=== PATIENT | male | born 1970 | race Caucasian/White ===

== ENCOUNTER → 2024-02-29 | Emergency (ER) | payer SELFPAY ==
[~2024-02-29] VITALS: Ht 160 cm; Wt 79.0 kg
[2024-02-29 10:26] VITALS: BP 70/76; PULSE 109; RESP 16; TEMP 98.1; O2SAT 96
== END ==
LOC: ER 10:35
DX: R53.1 Weakness (principal); Y08.89XA Assault by other specified means, initial encounter; Y93.89 Activity, other specified; Y92.89 Other specified places as the place of occurrence of the external cause; Y99.8 Other external cause status
CPT/HCPCS: 99283